=== PATIENT | female | born 1970 ===

== ENCOUNTER 2018-03-24 15:05 | Emergency (ER) | payer OTHER ==
[2018-03-24 15:05] VITALS: BMI 31.0
[2018-03-24 15:14] VITALS: TEMP 98.4
[2018-03-24 15:37] LABS: HCG,QUALITATIVE URINE NEGATIVE (NEGATIVE)
[2018-03-24] MEDS ORDERED: Sodium Chloride 0.9% 1,000 ML IV ONE (15:37)
[2018-03-24 15:49] LABS: BASO # 0.1 K/uL (0.0-0.2); BASO % 0.8 % (0.0-2.0); EOS # 0.1 K/uL (0.0-0.7); EOS % 2.2 % (0.0-4.0); HEMOGLOBIN 12.2 g/dL (11.0-16.0); LYMPH # 3.1 K/uL (1.0-4.3); LYMPH % 46.6 % (20.0-40.0); MEAN CORPUSCULAR HEMOGLOBIN 28.6 pg (27.0-31.0); MEAN PLATELET VOLUME 7.6 fL (7.2-11.7); MONO # 0.7 K/uL (0.0-0.8); NEUT # 2.7 K/uL (1.8-7.0); NEUT % 40.4 % (50.0-75.0); RBC 4.27 Mil/uL (3.80-5.20); RED CELL DISTRIBUTION WIDTH 14.2 % (11.5-14.5); WHITE BLOOD COUNT 6.7 K/uL (4.8-10.8)
[2018-03-24 15:52] LABS: SQUAMOUS EPITHIAL 5 /hpf (0-5); URINE BACTERIA RARE (<OCC); URINE BILIRUBIN NEGATIVE (NEGATIVE); URINE BLOOD 1+ (NEGATIVE); URINE CLARITY Hazy (Clear); URINE COLOR Yellow (YELLOW); URINE GLUCOSE (UA) NORMAL (Normal); URINE LEUKOCYTE ESTERASE TRACE Leu/uL (Negative); URINE PROTEIN NEGATIVE (NEGATIVE); URINE UROBILINOGEN NORMAL mg/dL (0.2-1.0)
[2018-03-24 16:02] LABS: ALB/GLOB RATIO 1.4 (1.0-2.1); ALBUMIN 4.3 g/dL (3.5-5.0); ALT/SGPT 30 U/L (9-52); AST/SGOT 19 U/L (14-36); BLOOD UREA NITROGEN 20 mg/dL (7-17); CALCIUM 9.5 mg/dl (8.6-10.4); GFR AFRICAN-AMERICAN > 60; GFR NON-AFRICAN AMERICAN 59
--- NOTE | 2018-03-24 16:35 | C.PDOC ---
History Of Present Illness 48 year old female presents to the ED for evaluation of a headache which began 3 days ago. She states her pain is generalized and describes a pounding sensation that is associated with nausea and photophobia. Patient reports having one episode of vomiting earlier today and one episode of diarrhea last night. Patient found no relief after taking Tylenol and Advil. She denies fever , chills, shortness of breath, dysuria, hematuria, or recent travel. Time Seen by Provider: 03/24/18 15:18 Chief Complaint (Nursing): Headache History Per: Patient History/Exam Limitations: no limitations Onset/Duration Of Symptoms: Days (3) Current Symptoms Are (Timing): Still Present Quality: Aching, Other (pounding ) Associated Symptoms: Photophobia, Nausea, Vomiting Recent travel outside of the [place]: No Additional History Per: Patient Past Medical History Reviewed: Historical Data, Nursing Documentation, Vital Signs Vital Signs: Last Vital Signs Temp 98.4 F 03/24/18 16:44 Pulse 80 03/24/18 16:44 Resp 18 03/24/18 16:44 BP 132/80 03/24/18 16:44 Pulse Ox 99 03/24/18 17:40 - Medical History PMH: Asthma, Diverticulitis, HTN, Hypercholesterolemia, Hyperlipidemia, Chronic Pain (back pain due to herniated disks.) Denies: Arthritis (PT DENIES), Back Problems (PT DENIES), Gastritis (PT DENIES), Gastrointestinal Ulcer (PT DENIES), Gall Bladder Disease (PT DENIES), Pancreatitis (PT DENIES) Surgical History: Hernia Repair (ventral) Denies: Appendectomy (PT DENIES), Cholecystectomy (PT DENIES) - [facility] Procedures CENTRAL VENOUS CATHETER PLACEMENT WITH GUIDANCE (04/01/14) ESOPHAGOGASTRODUODENOSCOPY [EGD] W/CLOSED BIOPSY (03/24/14) INJECT/INFUSE NEC (10/25/13) MYRINGOTOMY W INTUBATION (03/03/14) Family History: States: Unknown Family Hx - Social History Hx Tobacco Use: No Hx Alcohol Use: No Hx Substance Use: No - Immunization History Hx Tetanus Toxoid Vaccination: Yes Hx Influenza Vaccination: No Hx Pneumococcal Vaccination: No Review Of Systems Constitutional: Negative for: Fever, Chills Eyes: Positive for: Other (photophobia ) Respiratory: Negative for: Shortness of Breath Gastrointestinal: Positive for: Nausea, Vomiting, Diarrhea Genitourinary: Negative for: Dysuria, Hematuria Neurological: Positive for: Headache Physical Exam - Physical Exam Appears: Non-toxic, No Acute Distress Skin: Normal Color, Warm, Dry Head: Atraumatic, Normacephalic Eye(s): bilateral: Normal Inspection, PERRL, EOMI, Other (no nystagmus) Ear(s): Bilateral: Normal Nose: Normal, No Discharge Oral Mucosa: Moist Throat: Normal, No Erythema, No Exudate Neck: Normal ROM, Supple Chest: Symmetrical, No Deformity, No Tenderness Cardiovascular: Rhythm Regular, No Murmur Respiratory: Normal Breath Sounds, No Rales, No Rhonchi, No Wheezing Gastrointestinal/Abdominal: Soft, No Tenderness, No Guarding, No Rebound Extremity: Normal ROM, No Tenderness, No Pedal Edema, Capillary Refill (less than 2 seconds ), No Deformity Neurological/Psych: Oriented x3, Normal Speech, Normal Cognition, Normal Cranial Nerves, No Cerebellar Signs, Normal Motor, Normal Sensation Gait: Steady ED Course And Treatment - Laboratory Results Result Diagrams: 03/24/18 15:46 03/24/18 15:46 O2 Sat by Pulse Oximetry: 99 (on RA) Pulse Ox Interpretation: Normal Medical Decision Making Medical Decision Making: Impression: 48 year old female with headache Plan: * bloodwork * urinalysis * Reglan IVP * Toradol IVP * IV Fluids Progress: Bloodwork and urinalysis ordered and reviewed with no acute changes Reglan IVP, Toradol IVP, and IV Fluids administered. On re-examination, patient is resting comfortably, tolerating PO intake, and reports an improvement in her symptoms. She has no neuro deficits Patient is stable for discharge. She is advised to follow up with her PMD within 2-5 days for further evaluation and/or return to the ED if symptoms persist or worsen. Disposition Counseled Patient/Family Regarding: Diagnosis, Need For Followup, Rx Given - Disposition Referrals: Arelis Emery MD [Staff Provider] - Disposition: HOME/ ROUTINE Disposition Time: 16:33 Condition: IMPROVED Additional Instructions: Vaya a dimas mdico o la clnica en 2-5 wills sin falta, para mas evaluacin. [place] los medicamentos carmela indicado. Volver a la laurie de emergencia en cualquier momento si los sntomas persisten o empeoran. 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 - Scribe Statement The provider has reviewed the documentation as recorded by the Scribe (Maura Carrera) All medical record entries made by the Scribe were at my direction and personally dictated by me. I have reviewed the chart and agree that the record accurately reflects my personal performance of the history, physical exam, medical decision making, and the department course for this patient. I have also personally directed, reviewed, and agree with the discharge instructions and disposition.
[2018-03-24 16:50] VITALS: BP 132/80; PULSE 80; RESP 18
[2018-03-24 17:34] VITALS: O2SAT 99
== END 2018-03-24 16:44 | disposition home or self-care (01) ==
LOC: C.ER 15:05
DX: G43.909 Migraine, unspecified, not intractable, without status migrainosus (principal)
CPT/HCPCS: 80053; 81001; 82948; 84703; 85025; 96361; 96374; 96375; 99284; J1885; J2765; J7030

== ENCOUNTER 2018-04-21 05:35 | Emergency (ER) | payer OTHER ==
[2018-04-21 05:35] VITALS: BMI 31.0
--- NOTE | 2018-04-21 06:42 | C.PDOC ---
History Of Present Illness 48 year old female presents to the ER with a complaint of left lower back pain for the past 6 days. Patient states she slipped, fell, and hit her left lower back. Patient was initially taking motrin with mild relief but ran out and she state tylenol is not helping. Denies weakness or numbness. Time Seen by Provider: 04/21/18 05:59 Chief Complaint (Nursing): Back Pain History Per: Patient History/Exam Limitations: no limitations Onset/Duration Of Symptoms: Days Current Symptoms Are (Timing): Still Present Quality Of Discomfort: Unable To Describe Previous Symptoms: None Associated Symptoms: None Recent travel outside of the [place]: No Past Medical History Reviewed: Historical Data, Nursing Documentation, Vital Signs Vital Signs: Last Vital Signs Temp 97.9 F 04/21/18 05:49 Pulse 78 04/21/18 05:49 Resp 14 04/21/18 05:49 BP 161/90 H 04/21/18 05:49 Pulse Ox 98 04/21/18 07:01 - Medical History PMH: Asthma, Diverticulitis, HTN, Hypercholesterolemia, Hyperlipidemia, Chronic Pain (back pain due to herniated disks.) Surgical History: Hernia Repair (ventral) - [facility] Procedures CENTRAL VENOUS CATHETER PLACEMENT WITH GUIDANCE (04/01/14) ESOPHAGOGASTRODUODENOSCOPY [EGD] W/CLOSED BIOPSY (03/24/14) INJECT/INFUSE NEC (10/25/13) MYRINGOTOMY W INTUBATION (03/03/14) Family History: States: Unknown Family Hx - Social History Hx Tobacco Use: No Hx Alcohol Use: No Hx Substance Use: No - Immunization History Hx Tetanus Toxoid Vaccination: Yes Hx Influenza Vaccination: No Hx Pneumococcal Vaccination: No Review Of Systems Gastrointestinal: Negative for: Abdominal Pain Genitourinary: Negative for: Dysuria, Hematuria Musculoskeletal: Positive for: Back Pain Neurological: Negative for: Weakness, Numbness Physical Exam - Physical Exam Appears: Non-toxic Skin: Normal Color, Warm, Dry Head: Atraumatic, Normacephalic Eye(s): bilateral: Normal Inspection Back: No CVA Tenderness, No Vertebral Tenderness, Paraspinal Tenderness (Left paralumbar), Straight Leg Raising (Left positive at 30 degrees) Extremity: Normal ROM (x4) Neurological/Psych: Oriented x3, Normal Speech, Normal Motor, Normal Sensation Gait: Steady ED Course And Treatment O2 Sat by Pulse Oximetry: 98 (Room air) Pulse Ox Interpretation: Normal Progress Note: Flexeril and toradol administered. On reevaluation, patient is resting comfortably in no acute distress and is able to ambulate without any difficulty, will discharge home with Rx and instructions to follow up with PMD. 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 - Scribe Statement The provider has reviewed the documentation as recorded by the Scribsandy Donovan All medical record entries made by the Deejayibsandy were at my direction and personally dictated by me. I have reviewed the chart and agree that the record accurately reflects my personal performance of the history, physical exam, medical decision making, and the department course for this patient. I have also personally directed, reviewed, and agree with the discharge instructions and disposition.
[2018-04-21 07:13] VITALS: BP 149/91; PULSE 70; RESP 20; TEMP 97.5; O2SAT 100
== END 2018-04-21 07:13 | disposition home or self-care (01) ==
LOC: C.ER 05:35
DX: S39.012A Strain of muscle, fascia and tendon of lower back, initial encounter (principal); W01.0XXA Fall on same level from slipping, tripping and stumbling without subsequent striking against object, initial encounter; I10 Essential (primary) hypertension; E78.00 Pure hypercholesterolemia, unspecified; E78.5 Hyperlipidemia, unspecified
CPT/HCPCS: 96372; 99283; J1885